=== PATIENT | female | born 1945 | race Caucasian/White ===

== ENCOUNTER 2023-03-14 12:22 | Outpatient (REF) | payer MEDICARE, SELFPAY ==
[2023-03-14 13:06] VITALS: BMI 33.8
[2023-03-14 13:07] VITALS: BP 138/63; PULSE 57; RESP 16; TEMP 37; O2SAT 97
== END 2023-03-14 12:23 | disposition home or self-care (01) ==
LOC: HO.MS 12:22
PROVIDERS: PCP Internal Medicine; Visit Provider Ophthalmology
PROC: (CPT 66821; principal; 2023-03-14 14:40)
DX: H26.491 Other secondary cataract, right eye (principal)
CPT/HCPCS: 66821

== ENCOUNTER 2023-03-28 11:51 | Outpatient (REF) | payer MEDICARE, SELFPAY ==
[2023-03-28 12:08] VITALS: BMI 33.6
[2023-03-28 12:09] VITALS: BP 138/60; PULSE 61; RESP 16; TEMP 36.8; O2SAT 98
== END 2023-03-28 11:52 | disposition home or self-care (01) ==
LOC: HO.MS 11:51
PROVIDERS: PCP Internal Medicine; Visit Provider Ophthalmology
PROC: (CPT 66821; principal; 2023-03-28 14:20)
DX: H26.492 Other secondary cataract, left eye (principal)
CPT/HCPCS: 66821